=== PATIENT | male | born 1955 | race African-American/Black ===

== ENCOUNTER → 2018-10-12 | Outpatient (CLI) | payer MEDICARE ==
[~2018-10-12] MED LIST: AMLODIPINE BESYL5 MG PO; ATORVASTATIN CA20 M1 PO; COZAAR100 MG PO; DOXYCYCLINE100 M3 PO; FENOFIBRATE145 M1 PO; GABAPENTIN100 M2 PO; HUMALOG100 UNIT/1 SQ; LEVEMIR FL100 UNIT/1 SQ; LOSARTAN POTAS100 M1 PO; Lopressor25 MG PO; TRAMADOL HCL50 MG PO; VITAMIN D32000 UNI1 PO; XARELTO10 MG PO
[2018-10-12 12:24] LABS: BASO % 0.3 % (0.0-1.0); EOS # 0.1 10*3/uL (0.0-0.4); EOS % 1.5 % (1.0-4.0); LYMPH # 2.1 10*3/uL (1.3-4.4); LYMPH % 24.1 % (27.0-41.0); MEAN CORPUSCULAR HGB 27.9 pg (27.0-31.0); MEAN CORPUSCULAR HGB CONC 31.7 g/dl (33.0-37.0); MEAN PLATELET VOLUME 9.9 fl (9.6-12.3); MONO # 0.9 10*3/uL (0.1-1.0); MONO % 10.2 % (3.0-9.0); NEUT # 5.6 10*3/uL (2.3-7.9); NEUT % 63.6 % (47.0-73.0); PLATELET COUNT AUTOMATED 252 10*3/uL (130-400); RED BLOOD COUNT 4.66 10*6/uL (4.50-5.90); RED CELL DISTRI WIDTH 14.2 % (0-14.5); WHITE BLOOD COUNT 8.9 10*3/uL (4.8-10.8)
[2018-10-12 12:37] LABS: POTASSIUM 4.5 mmol/L (3.5-5.1)
== END | disposition home or self-care (01) ==
LOC: LAB 10:24
PROVIDERS: Podiatrist
DX: M14.672 Charcot's joint, left ankle and foot (principal); I10 Essential (primary) hypertension; E11.9 Type 2 diabetes mellitus without complications; F17.200 Nicotine dependence, unspecified, uncomplicated

== ENCOUNTER → 2018-10-19 | Day surgery (SDC) | payer MEDICARE ==
[~2018-10-19] VITALS: Ht 180.3 cm; Wt 99.3 kg
--- NOTE | ~2018-10-19 | WRIGHTHP ---
[place], [place] PATIENT HISTORY AND PHYSICAL EXAM NAME: TOMAS SIMON UNIT #: [id number] ROOM: DOCTOR: WAYNE LOZADA DPM BIRTHDATE: [birth year] DOS: 10/19/2018 INDICATION: The patient presents with a deformity of his left ankle and hindfoot. He is a relatively poor historian. He states that he had an open wound where he developed osteomyelitis and infection of his left ankle. Since then, he has a significant malaligned deformity. It appears like a Charcot arthropathy with deformity in varus and subsidence of his talus. With this in mind, he was set up for surgery at [facility] for bone debridement, bone biopsies of the left ankle. At this point, he is aware of pros, cons, risks and benefits, overcorrection, undercorrection, recurrence, infection, worsening DVT, PE, limb loss, RSD, CRPS, etc. With this mind, he was set up for surgery at [facility] on 10/19/2018. He understands the perioperative management. He understands the risk of DVT, PE, limb loss and understands worsening of infection, limb loss, , anything can happen, nothing should happen. With this in mind, he was set up for surgery, reviewed the site marking, reviewed the perioperative management. WAYNE LOZADA DPM CM:HISPHYS:PATIENT HISTORY AND PHYSICAL EXAMINATION 57 12 WAYNE LOZADA DPM 10/19/181812 interface
--- NOTE | ~2018-10-19 | WRIGHTHP ---
[place], [place] PATIENT HISTORY AND PHYSICAL EXAM NAME: TOMAS SIMON UNIT #: [id number] ROOM: DOCTOR: WAYNE LOZADA DPM BIRTHDATE: [birth year] DOS: 10/19/2018 LOWER EXTREMITY PHYSICAL EXAMINATION: VASCULAR: He has palpable pedal pulses, 2/4 DP and PT bilateral. Good cap refill time. NEUROLOGIC: He has loss of protective sensation secondary to peripheral neuropathy. DERMATOLOGIC: He has no open wounds. SKIN: Integrity is intact. He has previously healed wounds on the anteromedial and anterolateral aspect of his ankle. MUSCULOSKELETAL: He has limited range of motion. He has crepitus grinding that is audible and palpable and significant varus deformity of his left ankle and hindfoot. ORTHOPEDIC: Osteoarthritis, Charcot arthropathy, osteomyelitis, any or combination of all, significant varus deformity, loss of talus of his left and malalignment of his left hindfoot and ankle. WAYNE LOZADA DPM CM:HISPHYS:PATIENT HISTORY AND PHYSICAL EXAMINATION 165 15 WAYNE LOZADA DPM 10/19/181815 interface
--- NOTE | ~2018-10-19 | WRIGHTHP ---
[place], [place] PATIENT HISTORY AND PHYSICAL EXAM [id number] UNIT #: [id number] ROOM: DOCTOR: KIERRA CASTROWAYNE BIRTHDATE: [birth year] DOS: 10/19/2018 OPERATIVE REPORT: SURGEON: Wayne Lozada DPM INTERNET SECURITY SPECIALIST: Dr. Tyler Leiva, PGY-2. PREOPERATIVE DIAGNOSIS: Osteomyelitis of the left ankle. POSTOPERATIVE DIAGNOSIS: Osteomyelitis of the left ankle. PROCEDURES PERFORMED: 1. Incision and drainage, bone debridement, bone biopsy of the medial malleolus. 2. Incision and drainage, bone debridement, bone biopsy of the medial distal tibia. 3. Incision and drainage, bone debridement, bone biopsy of the distal lateral tibia. 4. Incision and drainage, bone debridement, bone biopsy of the lateral malleolus. 5. Incision and drainage, bone debridement, bone biopsy of the talus. PROCEDURES PERFORMED: The patient was seen in preop holding area, appropriate site marking was performed. The patient and family concurred. He understood pros, cons, risks and benefits and agrees. The site was marked. He was brought to the OR and placed on well-padded OR table. Anesthesia was achieved. At this point in time, appropriate time-out was performed and agreed and concurred. His left foot and leg were prepped and draped in sterile fashion. PROCEDURE #1: Incision and drainage, bone debridement, bone biopsy of left medial malleolus. Attention was directed under fluoroscopy guidance to the left medial malleolus. At this time, a stab incision was made. It was deepened in the same plane using sharp and blunt dissection, avoiding neurovascular structures, carried down to the bone. At this point in time, the bone was debrided. The bone was sent for Gram stain, aerobic, anaerobic, fungal acid fast for cultures of bone and also bone was sent for pathology for biopsy. This wound was then closed using 2-0 nylon. PROCEDURE #2: Incision and drainage, bone debridement, bone biopsy of distal medial aspect of the tibia. Under fluoroscopic guidance, the medial, distal and inferior aspect of the tibia was identified. A stab incision was made, deepened in the same plane using sharp and blunt dissection, avoiding neurovascular structures, carried down to the bone. At this time, bone was debrided using a curette and bone was harvested for Gram stain, aerobic, anaerobic, fungal acid fast as well as a biopsy of the distal medial aspect of the left tibia. The area was flushed with copious amounts of sterile saline. Skin was closed using 3-0 Prolene. PROCEDURE #3: Incision and drainage, bone debridement, bone biopsy of the distal lateral tibia. At this point in time, under fluoroscopy guidance, [place], [place] PATIENT HISTORY AND PHYSICAL EXAM NAME: TOMAS SIMON UNIT #: [id number] ROOM: DOCTOR: WAYNE LOZADA DPM BIRTHDATE: [birth year] incision was made, it was deepened in the same plane with sharp and blunt dissection, avoiding neurovascular structure, carried down to the bone. At this time, using a curette, the bone was harvested for Gram stain, aerobic, anaerobic, fungal acid fast. Bone was debrided and the bone was sent for biopsy. The area was flushed copiously with sterile saline. Skin was closed using 2-0 Prolene. PROCEDURE #4: Incision and drainage, bone debridement, bone biopsy of the distal fibula of the lateral malleolus. Incision was made under fluoroscopic guidance in the lateral malleolus, was deepened in the same plane via sharp and blunt dissection, avoiding neurovascular structures, carried down to the bone. At this time, the distal fibula bone was harvested for Gram stain, aerobic, anaerobic, fungal acid fast and Gram stain. It was irrigated with copious amounts of sterile saline and the skin was closed using 2-0 nylon. PROCEDURE #5: Incision and drainage, bone debridement, bone biopsy of the talus. Under fluoroscopic guidance, incision was made, it was deepened in the same plane via sharp and blunt dissection, avoiding neurovascular structure, was carried down to the bone. At this time, bone was harvested. It was sent for Gram stain, aerobic, anaerobic, fungal acid fast as well as a biopsy of the talus. The bone was debrided and the area was irrigated with copious amounts of sterile saline. Skin was closed with 2-0 nylon. Surgical wounds were dressed with Betadine-soaked Adaptic, 4 x 4s, Jayant in a sterile compressive fashion. He tolerated the procedure and anesthesia well and left the OR with vital signs stable and vascular status intact. WAYNE LOZADA DPM CM:HISPHYS:PATIENT HISTORY AND PHYSICAL EXAMINATION [id number] WAYNE LOZADA DPM 10/20/18 0955 ZAHRA [email or web address].TM
[2018-10-19 09:30] VITALS: BP 140/77
[2018-10-19 12:40] VITALS: BP 117/62
[2018-10-19 12:55] VITALS: BP 127/64
[2018-10-19 13:10] VITALS: BP 110/60
[2018-10-20 14:10] LABS: ACID FAST SPEC PROCESSING Tissue Grinding (.)
[2018-11-30 17:05] LABS: ACID FAST CULTURE Negative (.)
[2018-11-30 17:06] LABS: ACID FAST CULTURE Negative (.)
== END | disposition home or self-care (01) ==
LOC: SDC 10-12 11:00
PROVIDERS: Podiatrist
DX: M21.962 Unspecified acquired deformity of left lower leg (principal); I10 Essential (primary) hypertension; E10.40 Type 1 diabetes mellitus with diabetic neuropathy, unspecified; M19.90 Unspecified osteoarthritis, unspecified site; F17.210 Nicotine dependence, cigarettes, uncomplicated; E78.5 Hyperlipidemia, unspecified; E66.9 Obesity, unspecified; Z68.30 Body mass index [BMI] 30.0-30.9, adult; Z79.899 Other long term (current) drug therapy; Z90.49 Acquired absence of other specified parts of digestive tract; Z98.890 Other specified postprocedural states; Z91.041 Radiographic dye allergy status

== ENCOUNTER 2019-01-18 06:34 | Inpatient (IN) | payer MEDICARE ==
[~2019-01-18] VITALS: Ht 180.3 cm; Wt 97.5 kg
[2019-01-18] VITALS (9 sets, daily range): BP systolic 113–153; BP diastolic 63–77
--- NOTE | ~2019-01-18 | WRIGHTHP ---
[place], [place] PATIENT HISTORY AND PHYSICAL EXAM NAME: TOMAS SIMON UNIT #: [id number] ROOM: 522 DOCTOR: WAYNE LOZADA DPM BIRTHDATE: [birth year] DOS: 01/18/2019 INDICATION: The patient is seen for followup regarding very painful left lower extremity. He has had previous infection, previous wounds on his left lower extremity. He has previously undergone biopsies and cultures and they were negative. At this time, he was seen except for surgery for tibiotalar calcaneal arthrodesis, release of the posterior muscle group with Achilles tendon lengthening and harvesting fibular graft. With this in mind, he is aware of pros, cons, risks, benefits overcorrection, under correction, recurrence, numbness, infection, worsening, limb loss, DVT, PE, RSD, CRPS, etc., anything can happen, nothing should happen. With this in mind, he agreed to the surgery. He agreed to consent, he agreed to site marking, he agreed to perioperative management. WAYNE LOZADA DPM CM:HISPHYS:PATIENT HISTORY AND PHYSICAL EXAMINATION 46 39 WAYNE LOZADA DPM 01/18/192036 interface
--- NOTE | ~2019-01-18 | WRIGHTHP ---
[place], [place] PATIENT HISTORY AND PHYSICAL EXAM NAME: TOMAS SIMON UNIT #: [id number] ROOM: 522 DOCTOR: WAYNE LOZADA DPM BIRTHDATE: [birth year] DOS: 01/18/2019 LOWER EXTREMITY PHYSICAL EXAMINATION: VASCULAR: He has palpable pedal pulses 2/4, DP and PT. Good cap fill time. NEUROLOGIC: He has decreased epicritic sensation secondary to diabetic peripheral neuropathy. DERMATOLOGICAL: He has well-healed wounds, previous scars from previous surgeries. MUSCULOSKELETAL: He has limited range of motion of the ankle and subtalar joint using varus and using some of dorsiflexion with malalignment of the left lower extremity. MUSCULOSKELETAL: He has a gastroc soleus equinus deformity. Orthopedic exam, he has osteoarthritis, limited range of motion ankle joint, subtalar joint and varus. He has malunited medial malleolus fracture. WAYNE LOZADA DPM CM:HISPHYS:PATIENT HISTORY AND PHYSICAL EXAMINATION 1847 01 WAYNE LOZADA DPM 01/18/192100 interface
--- NOTE | ~2019-01-18 | O ---
[place], [place] OPERATIVE NOTE NAME: [facility]AS SIMON [facility] [id number] UNIT #: [id number] ROOM: 522 DOCTOR: WAYNE LOZADA DPM BIRTHDATE: [birth year] DOS: 01/18/2019 SURGEON: Dr. Lozada ASSISTANTS: 1. Dr. Braden Tanner, fellow. 2. Luigi Rojas, PGY3. 3. Laurie Hook, PGY1. 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 3. Osteoarthritis of the subtalar joint. 4. Osteoarthritis of the tib-fib joint. POSTOPERATIVE DIAGNOSES: 1. Gastroc soleus equinus. 2. Osteoarthritis tibiotalar joint. 3. Osteoarthritis of the subtalar joint. 4. Osteoarthritis of the tib-fib joint. PROCEDURES: 1. Achilles tendon lengthening. 2. Tibiotalar joint arthrodesis. 3. Subtalar joint arthrodesis. 4. Harvesting of large fibular graft. 5. Tib-fib syndesmosis fusion. DESCRIPTION OF PROCEDURE: The patient was seen in preoperative holding area. Appropriate site marking performed. He and his family concurred with the site marking, the treatment plan and the perioperative management and the patient agreed to it. Once he signed the consent, he was brought to OR, placed on the OR table. At this time, a spinal anesthetic was put in and at this point in time his left foot and leg were prepped and draped in usual sterile fashion. At this time, appropriate time-out was performed, everybody in the room concurred. With the tourniquet inflated to 300 mmHg, attention was directed to the left lower extremity. PROCEDURE #1: Achilles tendon lengthening. Attention was directed to the Achilles tendon where a stab incision was made. This was lengthened and ruptured to lengthen posterior muscle group to allow him to come out of varus. PROCEDURE #2: Tibiotalar arthrodesis. Attention was directed to the lateral aspect of the ankle over the fibula where incision was made, it was deepened in the same plane using sharp and blunt dissection, avoiding neurovascular structures, carried down to the fibular bone. Soft tissue was taken off the anterior and posterior aspect of the fibula. At this time, an osteotomy was made just distal one third of the fibula and this was flapped down and released off of the tibiotalar joint using a combination of osteotome mallets and freed up the syndesmosis. At this time, significant amount of time spent preparing [place], [place] OPERATIVE NOTE NAME: TOMAS SIMON UNIT #: [id number] ROOM: 522 DOCTOR: WAYNE LOZADA DPM BIRTHDATE: [birth year] the joint for the tibiotalar joint. The articular surface of the anterior aspect of the tibia was performed as well as the dorsum of the talus. Rongeurs, osteotomes mallets, curettes and drills were used to stimulate good healthy bleeding, removing all diseased bone. PROCEDURE #3: Harvesting of large fibular graft. Next, the fibula was completely harvested and removed from the left ankle. All the soft tissue was taken off and approximately one-third of the portion of the most medial aspect of the fibula was taken down and prepared for bone graft. Other portions of bone were put in a bone mill and morcellized very nicely. PROCEDURE #4: Subtalar joint fusion. Next, debridement of the talocalcaneal joint was performed. Attention was directed to the lateral aspect of the subtalar joint where the angle of Gissane and also posterior facet was debrided with high speed burs, curettes, rongeurs. Next, morselized bone was packed very tightly in this area of the subtalar joint. PROCEDURE #5: Fusion of the tib-fib joint. At this point in time, the fibula was used as an inlay graft. The bone was debrided on the lateral aspect of the tibia and talus and the calcaneus. This bone was resected and packed tightly in the loose spaces. Next, the fibula was laid in for tib-fib fusion as an inlay graft and this was fixated with several 4-0 solid cortical screws with and without washers. Remaining bone graft was packed very, very tightly around the tibiotalar joint, the tib-fib joint and the subtalar joint. Just checked under fluoroscopy noted to be in good anatomic alignment. At this point in time, 2 fully threaded 7.3 screws were placed from inferior calcaneus, distal aspect of the tibia anteriorly and there was a 7.3 screw inserted from the posterior malleolus across the talar head and neck. Surgical wounds were flushed with copious amounts of sterile saline. Deep tissue was closed using 0 Vicryl. Skin was closed using 2-0 nylon. Surgical wounds were dressed with Betadine-soaked Adaptic, 4 x 4s, Jayant in a sterile compressive fashion. Good cap refill time was noted to return to all digits of the left lower extremity when the tourniquet was dropped. The tourniquet was dropped prior to closure of surgery. He had good bleeding to the area. Good cap refill time. A univalve BK cast was applied. He tolerated the procedure and anesthesia well and left the OR with vital signs stable and vascular status intact. [place], [place] OPERATIVE NOTE NAME: TOMAS SIMON UNIT #: [id number] ROOM: 522 DOCTOR: WAYNE LOZADA DPM BIRTHDATE: [birth year] WAYNE LOZADA DPM CM:OPRECORD:OPERATIVE NOTE [id number] WAYNE LOZADA DPM 01/19/19 0229 interface
[~2019-01-18 06:34] MED LIST changes: -VITAMIN D32000 UNI1 PO
--- NOTE | 2019-01-18 13:53 | NUR ---
attempted to call podiatry resident, no answer. notified primary care team hemovac emptied for 240 of bloody drainage
--- NOTE | 2019-01-18 14:05 | NUR ---
DR. PARK MADE AWARE OF OUTPUT OF HEMOVAC, ORDER FOR H/H NOW. MAINTAIN AND RECORD DRAIN VALUES
--- NOTE | 2019-01-18 14:36 | NUR ---
MORPHINE GIVEN FOR LEFT HEEL PAIN 09/28. WILL MONITOR FOR EFFECTIVENESS
[2019-01-18 15:07] LABS: BASO % 0.1 % (0.0-1.0); EOS % 0.2 % (1.0-4.0); HEMATOCRIT 38.3 % (42.0-52.0); HEMOGLOBIN 12.1 g/dl (14.0-18.0); LYMPH # 0.8 10*3/uL (1.3-4.4); LYMPH % 7.1 % (27.0-41.0); MEAN CELL VOLUME 91.2 fl (80.0-94.0); MEAN CORPUSCULAR HGB 28.8 pg (27.0-31.0); MEAN CORPUSCULAR HGB CONC 31.6 g/dl (33.0-37.0); MEAN PLATELET VOLUME 10.1 fl (9.6-12.3); MONO # 0.6 10*3/uL (0.1-1.0); MONO % 5.2 % (3.0-9.0); PLATELET COUNT AUTOMATED 150 10*3/uL (130-400); RED CELL DISTRI WIDTH 14.5 % (0-14.5); WHITE BLOOD COUNT 11.5 10*3/uL (4.8-10.8)
--- NOTE | 2019-01-18 19:38 | NUR ---
MORPHINE EFFECTIVE FOR PAIN, ICE PACK TO LEG
[2019-01-18 20:14] LABS: HEMATOCRIT 36.2 % (42.0-52.0); HEMOGLOBIN 11.5 g/dl (14.0-18.0); LYMPH # 0.7 10*3/uL (1.3-4.4); LYMPH % 5.7 % (27.0-41.0); MEAN CORPUSCULAR HGB 28.6 pg (27.0-31.0); MEAN CORPUSCULAR HGB CONC 31.8 g/dl (33.0-37.0); MEAN PLATELET VOLUME 10.2 fl (9.6-12.3); NEUT # 10.8 10*3/uL (2.3-7.9); NEUT % 85.8 % (47.0-73.0); PLATELET COUNT AUTOMATED 162 10*3/uL (130-400); RED BLOOD COUNT 4.02 10*6/uL (4.50-5.90); RED CELL DISTRI WIDTH 14.3 % (0-14.5); WHITE BLOOD COUNT 12.6 10*3/uL (4.8-10.8)
--- NOTE | 2019-01-18 20:20 | NUR ---
PATIENT IS RESTING IN BED WITH EASY AND REGULAR RESPERS ON ROOM AIR. ASSESSMENT IS COMPLETE WITH NO C/O OR S/S OF DISTRESS NOTED AT THIS TIME. BED IS LOW, LOCKED, AND CALL LIGHT IS WITHIN REACH. HEMOVAC HAS BLOODY DRAINAGE NOTED. SEE SHIFT ASSESSMENT.
--- NOTE | 2019-01-18 20:50 | NUR ---
2200 MEDICATIONS GIVEN AT THIS TIME WELL PRN NORCO FOR LEFT FOOT PAIN RATING AN 8/10. CALL LIGHT IS WITHIN REACH, WILL MONITOR EFFECT.
--- NOTE | 2019-01-18 21:30 | NUR ---
PRN NORCO EFFECTIVE PER PATIENT.
--- NOTE | 2019-01-18 23:35 | NUR ---
PRN MORPHINE GIVEN AT THIS TIME FOR LEFT LEG PAIN RATING A 6/10. CALL LIGHT IS WITHIN REACH, WILL MONITOR EFFECT.
[2019-01-19] VITALS: BP 120/66
--- NOTE | 2019-01-19 01:00 | NUR ---
PRN MORPHINE EFFECTIVE PER PATIENT.
--- NOTE | 2019-01-19 02:22 | NUR ---
PRN NORCO GIVEN AT THIS TIME FOR LEFT FOOT PAIN, CALL LIGHT IS WITHIN REACH, WILL MONITOR EFFECT.
--- NOTE | 2019-01-19 03:00 | NUR ---
PRN NORCO APPEARS EFFECTIVE, PATIENT IS SLEEPING WITH EASY AND REGULAR RESPERS ON ROOM AIR. CALL LIGHT IS WITHIN REACH.
--- NOTE | 2019-01-19 04:25 | NUR ---
24 HR. CHART CHECK COMPLETE.
--- NOTE | 2019-01-19 05:46 | NUR ---
PRN MORPHINE GIVEN AT THIS TIME FOR C/O LEFT LEG PAIN RATING 6/10. CALL LIGHT IS WITHIN REACH, WILL MONITOR EFFECT.
[2019-01-19 07:04] LABS: BASO % 0.1 % (0.0-1.0); EOS % 0.3 % (1.0-4.0); HEMATOCRIT 35.4 % (42.0-52.0); LYMPH # 1.6 10*3/uL (1.3-4.4); LYMPH % 13.1 % (27.0-41.0); MEAN CELL VOLUME 89.8 fl (80.0-94.0); MEAN CORPUSCULAR HGB 27.9 pg (27.0-31.0); MEAN CORPUSCULAR HGB CONC 31.1 g/dl (33.0-37.0); MEAN PLATELET VOLUME 10.4 fl (9.6-12.3); MONO # 1.5 10*3/uL (0.1-1.0); MONO % 12.2 % (3.0-9.0); NEUT # 8.8 10*3/uL (2.3-7.9); NEUT % 73.9 % (47.0-73.0); PLATELET COUNT AUTOMATED 175 10*3/uL (130-400); RED BLOOD COUNT 3.94 10*6/uL (4.50-5.90); RED CELL DISTRI WIDTH 14.4 % (0-14.5)
[2019-01-19 07:29] LABS: CHLORIDE 104 mmol/L (98-107); POTASSIUM 4.2 mmol/L (3.5-5.1); SODIUM 136 mmol/L (136-145)
[2019-01-19 07:36] LABS: ALBUMIN 3.6 gm/dl (3.1-4.5); ALKALINE PHOSPHATASE 79 U/L (45-117); BUN 24 mg/dl (7-24); CHOLESTEROL 176 mg/dL (<200); CREATININE 1.35 mg/dL (0.70-1.30); HDL CHOLESTEROL 40 mg/dl (40-60); LDL CHOLESTEROL 103 mg/dL (9-159); PHOSPHOROUS 3.4 mg/dL (2.5-4.9); SGOT/AST 9 IU/L (3-35); SGPT/ALT 17 U/L (12-78); THYROID STIM HORMONE (HS) 0.414 uIU/ml (0.358-4.75); TOTAL PROTEIN 7.1 gm/dL (6.4-8.2); TRIGLYCERIDES 166 mg/dl (<150); VLDL CHOLESTEROL 33 mg/dL (6-40)
[2019-01-19 07:57] VITALS: BP 126/61
[2019-01-19 08:01] LABS: VITAMIN D, 25-HYDROXY 13.9 ng/mL (30-100)
--- NOTE | 2019-01-19 08:12 | NUR ---
Occupational Therapy referral received and chart review. Patient had surgery on left ankle. OT will need weight bearing orders before proceeding with OT evalaution. PT to discuss with nurse. Thank you. Mana Chen OTR/
--- NOTE | 2019-01-19 08:34 | NUR ---
PHYSICAL THERAPY CALLED AND ASKED WEIGHT BEARING STATUS TO LEFT FOOT. DR PARK CALLED ORDERS RECEIVED, NONE WEIGHT BEARING AT THIS TIME.
--- NOTE | 2019-01-19 10:46 | NUR ---
PHYSICAL THERAPY Physcial therapy evaluation complete, 5E. Full evaluation/details to follow. PT to progress with exercise per POC. Moderate complexity evaluation (95659) per chart review and evaluation. Recommend SNF at discharge. Thanks. Sirena Baptiste,PT,DPT.
--- NOTE | 2019-01-19 10:46 | NUR ---
Occupational therapy eval complete on 5 with full eval to follow. Precautions include bed alarm, fall risk, IV UE, and NWB LLE. Moderate complexity level 13396 via chart review, testing, and eval. Recommend OT per POC and discharge to SNF to enable safe return to prior level of independence. Thank you for this referral. Abisai Hameed S/OT Mana Chen OTR/L
--- NOTE | 2019-01-19 11:41 | NUR ---
SHOVEL OPERATOR spoke with the patient about SNF referral. SHOVEL OPERATOR informed the patient of [facility], since that is where the patient is residing. The patient is agreeable. Will fax referral to the [facility]( , Yoselin Devi- ). -DARWIN Urias
--- NOTE | 2019-01-19 11:51 | NUR ---
PHYSICAL THERAPY New orders per Physical Therapy status received at 11:51. Verbally discussed orders with Dr. Bermudez to clarify new orders at 12:15. Patient is to remain Non-Weight Bearing on LEFT LE. Patient status Bedrest with transfer to bedside chair priviledges. Thank you. Sirena Baptiste,PT,DPT
[2019-01-19 12:00] VITALS: BP 127/57
--- NOTE | 2019-01-19 12:15 | NUR ---
New orders received at 11:51. PT verbally discussed orders with Dr. Bermudez to clarify new orders at 12:15. Patient is to remain NWB on LLE. Patient status is bedrest with transfer to bedside chair priviledges, due to high fall risk. Abisai Hameed S/OT Mana Chen OTR/L
--- NOTE | 2019-01-19 13:48 | NUR ---
Resident Buyer in to talk to patient. Patient states lives at HOME with ALONE. There are FEW steps in the home. Physician: NON STAFF PHYSICIAN Pharmacy: [facility] Home health services: NONE Patient's level of ADLs: INDEPENDENT Patient has working utilities: YES DME: [facility] Follow-up physician's appointment after d/c: WILL MAKE FOLLOW UP APPOINTMENT AFTER DISCHARGE. Does patient want to access PORTAL?: NO Discharge plan PT STATES HE LIVES AT HOME AND IS THE CAREGIVER FOR THE HOUSEHOLD. PT HAS SURGERY ON LEFT FOOT YESTERDAY AND IS TO BE NON WEIGHT BEARING. PT IS REQUESTING TO GO TO A FACILITY. PT IS FROM [facility]. PT WAS REFERRED TO [facility]. WAITING TO HEAR BACK FROM THEM. WILL CONTINUE TO FOLLOW. . LUCRETIA GARVEY
--- NOTE | 2019-01-19 14:18 | NUR ---
FUNCTIONAL ARCHITECT faxed PT/OT [facility] to [facility]. -DARWIN Urias
--- NOTE | 2019-01-19 15:06 | NUR ---
DARWIN was notified from Staffing Analyst, Jessica, that Tia will complete the HENS for the patient. Still waiting for auth. -DARWIN Urias
[2019-01-19 16:00] VITALS: BP 121/63
--- NOTE | 2019-01-19 17:36 | NUR ---
PT C/O PAIN AND TIGHTNESS IN ONE SPOT OF SURGICAL DRSG. DR PARK NOTIFIED. HE STATES HE WILL SEE THE PT.
--- NOTE | 2019-01-19 17:37 | NUR ---
DR RESENDIZ NOTIFIED OF PT CONCERN R/T BSG AND SLIDING SCALE. HE STATES HE TAKES MORE INSULIN AT HOME THAN THIS SLIDING SCALE OFFERS AND HE IS CONCERNED WITH WOUND HEALING R/T HIGH BLOOD SUGARS. DR RESENDIZ STATES HE WILL LOOK INTO IT.
[2019-01-19 20:00] VITALS: BP 126/53
--- NOTE | 2019-01-19 20:03 | NUR ---
MORPHINE EFFECTIVE PER PT, PAIN TO LEFT FOOT RATED 6/10. NO FURTHER COMPLAINTS. CALL LIGHT IN REACH.
--- NOTE | 2019-01-19 23:43 | NUR ---
MORPHINE GIVEN FOR LEFT FOOT PAIN S/P SURGERY RATED 10/10 AND "THROBBING" CALL LIGHT IN REACH. ICE PACK TO BACK OF LEFT KNEE. ASSISTED PT TO COMFORTABLE POSITION. WILL MONITOR.
[2019-01-20] VITALS: BP 139/65
--- NOTE | 2019-01-20 00:26 | NUR ---
EYES CLOSED AND RESTING, MORPHINE SEEMS TO BE EFFECTIVE FOR COMPLAINTS. WILL CONTINUE TO MONITOR. CALL LIGHT IN REACH.
--- NOTE | 2019-01-20 00:39 | NUR ---
PER PT, MORPHINE WAS INEFFECTIVE FOR PAIN TO LEFT FOOT/LEG. NOTIFIED. REQUESTED ONE TIME OF DILAUDID. SAID HE WOULD LOOK AT THE CHART.
--- NOTE | 2019-01-20 03:43 | NUR ---
24HR CHART CHECK COMPLETED.
[2019-01-20 06:34] LABS: BASO % 0.1 % (0.0-1.0); EOS # 0.1 10*3/uL (0.0-0.4); EOS % 0.8 % (1.0-4.0); HEMOGLOBIN 9.8 g/dl (14.0-18.0); LYMPH % 19.9 % (27.0-41.0); MEAN CELL VOLUME 88.2 fl (80.0-94.0); MEAN CORPUSCULAR HGB 28.8 pg (27.0-31.0); MEAN CORPUSCULAR HGB CONC 32.7 g/dl (33.0-37.0); MEAN PLATELET VOLUME 10.4 fl (9.6-12.3); MONO # 1.4 10*3/uL (0.1-1.0); MONO % 13.7 % (3.0-9.0); NEUT # 6.6 10*3/uL (2.3-7.9); NEUT % 65.2 % (47.0-73.0); PLATELET COUNT AUTOMATED 136 10*3/uL (130-400); RED CELL DISTRI WIDTH 14.3 % (0-14.5); WHITE BLOOD COUNT 10.1 10*3/uL (4.8-10.8)
[2019-01-20 07:00] LABS: BUN 17 mg/dl (7-24); CHLORIDE 104 mmol/L (98-107); CREATININE 1.04 mg/dL (0.70-1.30); POTASSIUM 3.6 mmol/L (3.5-5.1); SODIUM 136 mmol/L (136-145)
[2019-01-20 08:00] VITALS: BP 142/71
--- NOTE | 2019-01-20 09:15 | NUR ---
PHYSICAL THERAPY Patient seen this am 1;1 for therapy visit and was resting supine in bed upon therapist arrival. Patient voices increased c/o of L LE pain / edema, / this morning, stating he was kneeling in bedside chair yesterday afternoon which caused the quick onset of L LE edema. Patient presents with L ankle cast and is NWB L LE, with only transfers permitted to BSC or bedside chair. Otherwise keeping L LE elevated for edema control. Patient transfers supine to sit EOB Min A and sit to stand CGA, completieng SPT to [facility] with use of std walker, demonstrating good upright posture. Patient still reports L LE pain during transfer and was 100% compliant with NWB status L LE. Patient returned to EOB sit and instructed on seated open chain B LE therex, all planes x 10 reps each and completed all without c/o. Patient remained EOB sit with call light, tray table and cell phone. Will continue per POC as tolerated, total treatment time 13 minutes. Yonathan Anderson, REVIEW COORDINATOR
--- NOTE | 2019-01-20 09:16 | NUR ---
OT NOTE Pt was seen this A.M. 1:1 for 18 minute OT session. Upon arrival pt was supine in bed. Pt identified by name and and had complaints of 9/10 LLE pain. Pt transferred supine to sit EOB with Joce. Pt was able to recall and explain his weight bearing status with no verbal prompts. Sit to stand completed from bed level with CGA for safety and use of standard walker for UE support. Stand pivot completed from EOB <> bedside commode with CGA and use of standard walker. Pt then transferred back into bed sit to supine with SBA. There he was left with call light in hand, tray table in place, and phone in reach. Continue with rec D/C plan to SNF. NITIN Soria/Darline
--- NOTE | 2019-01-20 09:39 | NUR ---
Mcgrath given per patient request for c/o pain in LLE. Patient rates pain 7/10. Patient just completed morning PT. Will monitor.
--- NOTE | 2019-01-20 11:18 | NUR ---
PT VOICED POSTOPERATIVE PAIN 10/10. MEDICATED WITH MORPHINE 2MG ORDERED. WILL MONITOR.
--- NOTE | 2019-01-20 11:22 | NUR ---
BI ANALYST spoke with Hannah from [facility] patient is accepted and when medically stable can go. The patient stated he would have a ride upon discharge. A phone number for report: [phone] Fax for Discharge Summary is [phone]. DARWIN Urias
--- NOTE | 2019-01-20 11:42 | NUR ---
Percocet given per patient c/o surgical rated 8/10. Will monitor.
[2019-01-20 11:51] VITALS: BP 148/79
--- NOTE | 2019-01-20 12:41 | NUR ---
Percocet effective. Patient satisfied.
--- NOTE | 2019-01-20 14:27 | NUR ---
PT HAS BEEN ACCEPTED TO [facility]. PT IS MEDICARE AND REQUIRES A 3 NIGHT STAY. PT CAN GO ON WednesdayJan. WILL CONTINUE TO FOLLOW.
--- NOTE | 2019-01-20 14:46 | NUR ---
PHYSICAL THERAPY CO-SIGN I approve of the Physical Therapy notes written above. JAMAICA CHO PT,DPT
--- NOTE | 2019-01-20 15:01 | NUR ---
DIRECTOR PEOPLESOFT recieved notice from [employer], that the patient sister would like a referral to [facility] in [place], [place]. DIRECTOR PEOPLESOFT reached out to the facility they may have an opening. DIRECTOR PEOPLESOFT faxed referral to [facility]. DIRECTOR PEOPLESOFT spoke with the patient about the referral he is in agreeance, but does not want to exclude [facility] at the moment. Again the patient requires a 3 night stay. Patient has been accepted at the [facility]. Will await to hear back from [facility] with acceptance or denial. -DARWIN Urias
[2019-01-20 16:00] VITALS: BP 168/68
--- NOTE | 2019-01-20 16:01 | NUR ---
OCCUPATIONAL THERAPY CO-SIGN I approve of the Occupational Therapy notes written above. LEESA PARKER OTR/Darline
--- NOTE | 2019-01-20 17:44 | NUR ---
Percocet given for c/o surgical pain rated 7/10. Will monitor.
[2019-01-20 20:00] VITALS: BP 150/68
--- NOTE | 2019-01-20 20:33 | NUR ---
MORPHINE GIVEN FOR LEFT FOOT PAIN RATED 5/10 S/P FUSION. CALL LIGHT IN REACH. WILL MONITOR EFFECTIVENESS.
--- NOTE | 2019-01-20 23:03 | NUR ---
PRN MORPHINE WAS EFFECTIVE. PT IS RESTING COMFORTABLY IN BED, WITH NO SIGNS OF DISTRESS.
--- NOTE | 2019-01-20 23:48 | NUR ---
PRN PERCOCET WAS GIVEN FOR A PAIN OF 5/10 IN LEFT FOOT. WILL REASSESS EFFECTIVENESS.
[2019-01-21] VITALS: BP 138/72
--- NOTE | 2019-01-21 00:28 | NUR ---
PRN MORPHINE GIVEN FOR A PAIN LEVEL OF 8/10. WILL REASSESS EFFECTIVENESS.
--- NOTE | 2019-01-21 00:48 | NUR ---
PRN PERCOCET WAS NOT EFFECTIVE. PT IS RATING HIS PAIN A 7/10. EXPLAINED THAT PRN MORPHINE COULD NOT BE GIVEN AT THIS TIME, BUT WOULD BRING IT IN WHEN ABLE TOO.
--- NOTE | 2019-01-21 01:18 | NUR ---
PRN MORPHINE WAS EFFECTIVE. PT IS RESTING COMFORTABLY IN BED, WITH NO SIGNS OF DISTRESS.
--- NOTE | 2019-01-21 05:10 | NUR ---
PRN MORPHINE GIVEN FOR A PAIN LEVEL OF 9/10. WILL REASSESS EFFECTIVENESS.
[2019-01-21 06:34] LABS: HEMATOCRIT 33.9 % (42.0-52.0); HEMOGLOBIN 10.7 g/dl (14.0-18.0); MEAN CELL VOLUME 89.7 fl (80.0-94.0); MEAN CORPUSCULAR HGB 28.3 pg (27.0-31.0); MEAN CORPUSCULAR HGB CONC 31.6 g/dl (33.0-37.0); MEAN PLATELET VOLUME 10.2 fl (9.6-12.3); PLATELET COUNT AUTOMATED 170 10*3/uL (130-400); RED BLOOD COUNT 3.78 10*6/uL (4.50-5.90)
--- NOTE | 2019-01-21 06:54 | NUR ---
24 HR chart check completed.
[2019-01-21 07:32] LABS: TOTAL CELLS COUNTED 100 #CELLS
[2019-01-21 07:33] LABS: PLATELET SUFFICIENCY NORMAL (NORMAL)
[2019-01-21 08:00] VITALS: BP 120/66
--- NOTE | 2019-01-21 09:49 | NUR ---
Isela from [facility] called to see if patient was being discharged today. She also questioned whether or not the patient will be discharged on IV medications and drain/hemo vac. To call return her call after physicians complete rounding. Her number is
--- NOTE | 2019-01-21 10:00 | NUR ---
Morphine given per patient request for c/o pain in his heel of LLE. Patient rates pain 8/10.
--- NOTE | 2019-01-21 11:57 | NUR ---
Percocet given per patient request for c/o LLE pain rated 6/10.
[2019-01-21 12:00] VITALS: BP 114/52
--- NOTE | 2019-01-21 12:40 | NUR ---
[place] effective. Patient asleep with respirations >12.
[2019-01-21 16:00] VITALS: BP 102/61
[2019-01-21 20:00] VITALS: BP 132/65
[2019-01-22] VITALS: BP 126/60
[2019-01-22 06:36] LABS: BASO % 0.1 % (0.0-1.0); EOS # 0.1 10*3/uL (0.0-0.4); EOS % 1.2 % (1.0-4.0); HEMATOCRIT 31.4 % (42.0-52.0); HEMOGLOBIN 9.9 g/dl (14.0-18.0); LYMPH # 1.8 10*3/uL (1.3-4.4); MEAN CELL VOLUME 89.2 fl (80.0-94.0); MEAN CORPUSCULAR HGB 28.1 pg (27.0-31.0); MEAN CORPUSCULAR HGB CONC 31.5 g/dl (33.0-37.0); MEAN PLATELET VOLUME 10.2 fl (9.6-12.3); MONO # 1.3 10*3/uL (0.1-1.0); MONO % 12.5 % (3.0-9.0); NEUT # 7.3 10*3/uL (2.3-7.9); NEUT % 68.9 % (47.0-73.0); PLATELET COUNT AUTOMATED 182 10*3/uL (130-400); RED BLOOD COUNT 3.52 10*6/uL (4.50-5.90); RED CELL DISTRI WIDTH 13.8 % (0-14.5); WHITE BLOOD COUNT 10.6 10*3/uL (4.8-10.8)
[2019-01-22 08:00] VITALS: BP 116/65
--- NOTE | 2019-01-22 09:08 | NUR ---
PT COMPLAIN OF PAIN 6/10, MORPHINE GIVEN. WILL MONITOR FOR EFECTIVENESS.
--- NOTE | 2019-01-22 09:45 | NUR ---
PT STATES NO CHANGE IN PAIN, MORPHINE HELPED "LITTLE"
--- NOTE | 2019-01-22 11:26 | NUR ---
PERCOCET GIVEN FOR LEFT HEEL/FOOT PAIN, WILL MONITOR FOR EFFECTIVENESS
[2019-01-22 12:00] VITALS: BP 120/52
--- NOTE | 2019-01-22 14:00 | NUR ---
PT STATES PERCOCET EFFECTIVE FOR PAIN,NO OTHER NEEDS STATED AT THIS TIME
--- NOTE | 2019-01-22 15:30 | NUR ---
PT STATES PAIN 4/10, PERCOCET GIVEN. WILL MONITOR FOR EFFECTIVENESS
[2019-01-22 16:00] VITALS: BP 129/66
--- NOTE | 2019-01-22 16:26 | NUR ---
PTS IVS ARE OUTDATED, HE THINKS THAT HE WILL BE DISCHARGED TOMORROW, DOES NOT WANT A NEW IV STARTED. BOTH IVS THAT HE HAS CURRENTLY ARE WNL, FLUSH WITHOUT DIFFICULTY AND HAVE NO REDNESS
--- NOTE | 2019-01-22 19:53 | NUR ---
PATIENT MEDICATED WITH PERCOCET FOR COMPLAINTS OF LEFT FOOT PAIN. WILL CONTINUE TO MONITOR. CALL LIGHT IN REACH.
[2019-01-22 20:00] VITALS: BP 131/66
--- NOTE | 2019-01-22 21:38 | NUR ---
PATIENT MEDICATED WITH MORPHINE FOR CONTINUED COMPLAINTS OF LEFT FOOT PAIN. WILL CONTINUE TO MONITOR. CALL LIGHT IN REACH.
--- NOTE | 2019-01-22 23:53 | NUR ---
MEDICATED WITH PERCOCET AT THIS TIME. WILL CONTINUE TO MONITOR.
[2019-01-23] VITALS: BP 122/64
--- NOTE | 2019-01-23 02:21 | NUR ---
MEDICATED WITH MORPHINE FOR PAIN.
--- NOTE | 2019-01-23 05:42 | NUR ---
MEDICATED WITH PERCOCET FOR COMPLAINTS OF LEFT LEG PAIN. WILL CONTINUE TO MONITOR.
[2019-01-23 06:33] LABS: BASO % 0.1 % (0.0-1.0); EOS # 0.2 10*3/uL (0.0-0.4); EOS % 1.8 % (1.0-4.0); HEMATOCRIT 30.8 % (42.0-52.0); HEMOGLOBIN 9.7 g/dl (14.0-18.0); LYMPH # 1.4 10*3/uL (1.3-4.4); LYMPH % 12.7 % (27.0-41.0); MEAN CELL VOLUME 89.3 fl (80.0-94.0); MEAN CORPUSCULAR HGB 28.1 pg (27.0-31.0); MEAN CORPUSCULAR HGB CONC 31.5 g/dl (33.0-37.0); MONO # 1.2 10*3/uL (0.1-1.0); MONO % 10.8 % (3.0-9.0); NEUT # 8.1 10*3/uL (2.3-7.9); NEUT % 74.2 % (47.0-73.0); PLATELET COUNT AUTOMATED 201 10*3/uL (130-400); RED BLOOD COUNT 3.45 10*6/uL (4.50-5.90); RED CELL DISTRI WIDTH 13.6 % (0-14.5); WHITE BLOOD COUNT 10.8 10*3/uL (4.8-10.8)
[2019-01-23 07:01] LABS: IRON 18 ug/dL (65-175); TOTAL IRON BINDING CAPACITY 259 ug/dl (250-450)
[2019-01-23 08:00] VITALS: BP 129/75
--- NOTE | 2019-01-23 08:35 | NUR ---
PHYSICAL THERAPY Patient seen this am 1:1 for therapy and was supine in bed following breakfast upon therapist arrival. Patient reports mild 4/10 L LE pain and presents with L LE cast while remaining NWB. Patient transfers supine to sit EOB CGA, performing sit to stand, CGA x 1 with use of std walker for standing support. Patient ambulates CGA, std walker, 45'x 1, demonstrating impulsive, unsteady gait pattern, with increased gait velocity. Patient needed v/c to improve safety awareness with 3 pt gait pattern. Patient also fatigues quickly and returned to EOB sit as nurse arrived. Patient instructed on seated R LE Gastroc stretch and demonstrated good understanding of ex. Patient remained EOB with call light, tray table and cell phone. Will continue per POC as tolerated, total treatment time 14 minutes. Yonathan Anderson, COMMUNITY HEALTH NURSE
--- NOTE | 2019-01-23 08:50 | NUR ---
OT NOTE Pt was seen this A.M. 1:1 for 15 minute OT session. Upon arrival pt was supine in bed. Pt identified by name and and had complaints of 4/10 LLE pain. Pt was still able to recall NWB status on LLE. Pt transferred supine to sit EOB with CGA for safety. While sitting EOB pt doffed and donned R sock with SBA followed by simulated LB bathing while sitting EOB with SBA. Pt completed multiple stand pivot transfers from bed level with CGA and use of standard walker for UE support. Pt had 100% carry over with NWB status and presented with one LOB while turning that was corrected with Joce. Pt transferred back into bed sit to supine with CGA. Pt was left supine in bed wit LLE elevated for edema control, call light in hand, and tray table in place. Continue with rec D/C plan to SNF. NITIN Soria/Darline
--- NOTE | 2019-01-23 08:59 | NUR ---
"MORPHINE" REQUESTED FOR BURNING PAIN TO LEFT FOOT RATED 8/10. CALL LIGHT IN REACH. WILL MONITOR. ABX RUNNING.
--- NOTE | 2019-01-23 09:36 | NUR ---
OIL LABORATORY ANALYST spoke the patient about hearing back from [facility]. Patient was accepted. Patient has also been accepted at [facility]. OIL LABORATORY ANALYST confirmed that the room at [facility] was a semi-private room and [facility] would be private. The patient chose to go to the [facility]. Isi was notified. She completed the HENS this past Wednesday. Faxing updates to the [facility]. When medically clear the will be going to the [facility]. -DARWIN Urias
--- NOTE | 2019-01-23 11:32 | NUR ---
PERCOCET GIVEN FOR LEFT FOOT PAIN RATED 5/10. CALL LIGHT IN REACH. NO COMPLAINTS VOICED. WILL MONITOR.
[2019-01-23 12:00] VITALS: BP 122/62
[2019-01-23] MEDS ORDERED: VITAMIN D32000 UNI1 PO (15:07)
--- NOTE | 2019-01-23 15:11 | NUR ---
IN TO SEE PT
[2019-01-23] MEDS ORDERED: TRAMADOL HCL50 MG PO (15:15)
[2019-01-23] MEDS ORDERED: XARELTO10 MG PO (15:15)
[2019-01-23] MEDS ORDERED: DOXYCYCLINE100 M3 PO (15:15)
--- NOTE | 2019-01-23 17:07 | NUR ---
PIC/MEASUREMENTS OF LEFT FOOT UNABLE TO BE OBTAINED DUE TO HARD CAST COVERING SITE. UNABLE TO REMOVE CAST.
--- NOTE | 2019-01-23 17:10 | NUR ---
Discharge instructions reviewed with patient/family. Patient receptive and verbalizes understanding. Follow-up care arranged. Written instructions given to patient/family. BASIM GEE
--- NOTE | 2019-01-23 17:19 | NUR ---
NURSE TO NURSE REPORT GIVEN TO VIVEK AT THE [facility].
--- NOTE | 2019-01-24 08:25 | NUR ---
OCCUPATIONAL THERAPY CO-SIGN I approve of the Occupational Therapy notes written above. LEESA PARKER OTR/Darline
--- NOTE | 2019-01-24 08:39 | NUR ---
PHYSICAL THERAPY CO-SIGN I approve of the Physical Therapy notes written above. JAMAICA CHO PT,DPT
== END 2019-01-23 17:10 | disposition other institution (70) | DRG 492 ==
LOC: SDC 06:34 → 5E 11:58
PROVIDERS: Family Medicine; Internal Medicine; ADMIT Internal Medicine
PROC: 0SGG07Z Fusion of Left Ankle Joint with Autologous Tissue Substitute, Open Approach (ICD-10-PCS; principal; 2019-01-18)
PROC: 0SGJ07Z Fusion of Left Tarsal Joint with Autologous Tissue Substitute, Open Approach (ICD-10-PCS; principal; 2019-01-18)
PROC: 0QBK0ZZ Excision of Left Fibula, Open Approach (ICD-10-PCS; principal; 2019-01-18)
PROC: 0L8P0ZZ Division of Left Lower Leg Tendon, Open Approach (ICD-10-PCS; principal; 2019-01-18)
PROC: 0SSG04Z Reposition Left Ankle Joint with Internal Fixation Device, Open Approach (ICD-10-PCS; principal; 2019-01-18)
DX: M19.072 Primary osteoarthritis, left ankle and foot (principal); N17.0 Acute kidney failure with tubular necrosis; D62 Acute posthemorrhagic anemia; M24.572 Contracture, left ankle; E66.9 Obesity, unspecified; I10 Essential (primary) hypertension; D64.9 Anemia, unspecified; E11.42 Type 2 diabetes mellitus with diabetic polyneuropathy; D72.829 Elevated white blood cell count, unspecified; E11.65 Type 2 diabetes mellitus with hyperglycemia; E83.41 Hypermagnesemia; R00.1 Bradycardia, unspecified; E78.5 Hyperlipidemia, unspecified; Z79.4 Long term (current) use of insulin; Z87.891 Personal history of nicotine dependence; Z80.3 Family history of malignant neoplasm of breast; Z80.0 Family history of malignant neoplasm of digestive organs; Z83.6 Family history of other diseases of the respiratory system; Z79.899 Other long term (current) drug therapy; Z68.29 Body mass index [BMI] 29.0-29.9, adult

== ENCOUNTER → 2019-07-12 | Day surgery (SDC) | payer MEDICARE ==
[2019-07-07 09:35] LABS: BASO % 0.2 % (0.0-1.0); EOS # 0.3 10*3/uL (0.0-0.4); EOS % 3.5 % (1.0-4.0); HEMATOCRIT 44.1 % (42.0-52.0); HEMOGLOBIN 13.6 g/dl (14.0-18.0); LYMPH # 2.6 10*3/uL (1.3-4.4); LYMPH % 28.2 % (27.0-41.0); MEAN CELL VOLUME 86.1 fl (80.0-94.0); MEAN CORPUSCULAR HGB 26.6 pg (27.0-31.0); MEAN CORPUSCULAR HGB CONC 30.8 g/dl (33.0-37.0); MEAN PLATELET VOLUME 10.4 fl (9.6-12.3); MONO % 10.5 % (3.0-9.0); NEUT # 5.3 10*3/uL (2.3-7.9); NEUT % 57.3 % (47.0-73.0); PLATELET COUNT AUTOMATED 223 10*3/uL (130-400); RED BLOOD COUNT 5.12 10*6/uL (4.50-5.90); RED CELL DISTRI WIDTH 15.8 % (0-14.5); WHITE BLOOD COUNT 9.2 10*3/uL (4.8-10.8)
[2019-07-12] VITALS (7 sets, daily range): BP systolic 94–124; BP diastolic 45–73
[~2019-07-12] VITALS: Ht 180.3 cm; Wt 99.8 kg
[~2019-07-12] MED LIST changes: +NORCO 5-325 TA1 EACH PO; +NOVOLOG MI100 UNIT/2 SQ; +VITAMIN D32000 UNI1 PO
== END | disposition home or self-care (01) ==
LOC: SDC 06-02 14:00
PROVIDERS: Podiatrist
DX: T84.84XA Pain due to internal orthopedic prosthetic devices, implants and grafts, initial encounter (principal); E11.9 Type 2 diabetes mellitus without complications; I10 Essential (primary) hypertension; E78.00 Pure hypercholesterolemia, unspecified; Y83.8 Other surgical procedures as the cause of abnormal reaction of the patient, or of later complication, without mention of misadventure at the time of the procedure; Y92.89 Other specified places as the place of occurrence of the external cause; Z82.49 Family history of ischemic heart disease and other diseases of the circulatory system; Z83.3 Family history of diabetes mellitus